=== PATIENT | female | born 1940 | race Caucasian/White ===

== ENCOUNTER 2017-03-25 13:56 | Emergency (ER) | payer OTHER ==
[2017-03-25 14:08] VITALS: TEMP 98
--- NOTE | 2017-03-25 14:25 | EDPHY ---
H & P Stated Complaint: tripped and fell on kitchen floor 3 wks ago - wants XR Time Seen by Provider: 03/25/17 14:07 HPI/ROS: CHIEF COMPLAINT: Right clavicle pain HISTORY OF PRESENT ILLNESS: The patient is a 76-year-old female who denies any significant medical history other than smoking. She fell in her kitchen 3 weeks ago and suffered a right clavicle fracture. She did not have it evaluated. She is also concerned that maybe she broke her ribs because she has pain with deep inspiration. She states that it is improving but is not yet resolved. She denies head neck or back injury . She has been ambulating without difficulty. REVIEW OF SYSTEMS: Constitutional: denies: chills, fever, recent illness, recent injury EENTM: denies: blurred vision, double vision, nose congestion Respiratory: See HPI Cardiac: denies: chest pain, irregular heart rate, lightheadedness, palpitations Gastrointestinal/Abdominal: denies: abdominal pain, diarrhea, nausea, vomiting, blood streaked stools Genitourinary: denies: dysuria, frequency, hematuria, pain Musculoskeletal: See HPI Skin: denies: lesions, rash, jaundice, bruising Neurological: denies: headache, numbness, paresthesia, tingling, dizziness, weakness Hematologic/Lymphatic: denies: blood clots, easy bleeding, easy bruising Immunologic/allergic: denies: HIV/AIDS, transplant EXAM: GENERAL: Well-appearing, well-nourished and in no acute distress. HEAD: Atraumatic, normocephalic. EYES: Pupils equal round and reactive to light, extraocular movements intact, sclera anicteric, conjunctiva are normal. ENT: TMs normal, nares patent, oropharynx clear without exudates. Moist mucous membranes. NECK: Normal range of motion, supple without lymphadenopathy or JVD. LUNGS: Breath sounds clear to auscultation bilaterally and equal. No wheezes rales or rhonchi. HEART: Regular rate and rhythm without murmurs, rubs or gallops. ABDOMEN: Soft, nontender, normoactive bowel sounds. No guarding, no rebound. No masses appreciated. BACK: No CVA tenderness, no spinal tenderness, step-offs or deformities EXTREMITIES: Step-off deformity right clavicle, old bruising visible through clavicular area and breast. Pain to right lateral ribs with deep inspiration. No tenderness or crepitus. Normal breath sounds. NEUROLOGICAL: Cranial nerves II through XII grossly intact. Normal speech, normal gait. 5/5 strength, normal movement in all extremities, normal sensation PSYCH: Normal mood, normal affect. SKIN: Warm, dry, normal turgor, no visible rashes or lesions. Source: Patient - Personal History Current Tetanus Diphtheria and Acellular Pertussis (TDAP): Unsure - Medical/Surgical History Hx Diabetes: No Hx Cardiac Disease: No Hx Renal Disease: No Hx Cirrhosis: No Hx Alcoholism: No Other PMH: Hyst - Family History Significant Family History: No pertinent family hx - Social History Smoking Status: Former smoker Alcohol Use: Sober Constitutional: Initial Vital Signs Temperature (C) 36.6 C 03/25/17 14:06 Heart Rate 101 H 03/25/17 14:06 Respiratory Rate 22 H 03/25/17 14:06 Blood Pressure 187/108 H 03/25/17 14:06 O2 Sat (%) 90 L 03/25/17 14:06 O2 Delivery Mode Room Air Allergies/Adverse Reactions: No Known Allergies Allergy (Unverified 03/25/17 14:05) Home Medications: Medication Instructions Recorded NK [No Known Home Meds] 03/25/17 Medical Decision Making - Diagnostics Imaging: Discussed imaging studies w/ typesetter apprentice Radiologist Procedures: Procedure: Splint placement. A sling was applied. After application of the splint I returned and re- examined the patient. The splint was adequately immobilizing the joint and distal to the splint the patient's circulation and sensation was intact. ED Course/Re-evaluation: 2:55 p.m. we discussed the x-ray results are reassuring. Will place the patient in a sling. I have consulted Orthopedics about the clavicle although it is already been 3 weeks. We discussed pain control as well. No sign of pneumothorax or pneumonia. Or pulmonary contusion. 3:05 p.m. I notified [facility] of the patient's injuries for follow-up. 3:06 p.m. I discussed the case with Tomas Matamoros who agrees with sling placement and follow up with Orthopedics for now. It will likely require surgical repair because there is a piece of bony between the two ends. Differential Diagnosis: Partial list of the Differential diagnosis considered include but were not limited to; rib fracture, clavicle fracture and although unlikely based on the history and physical exam, I also considered pneumonia, pneumothorax, contusion. I discussed these differential diagnoses and the plan with the patient as well as the usual and expected course. The patient understands that the diagnosis is provisional and that in medicine we are not always correct and that further workup is often warranted. Usual and customary warnings were given. All of the patient's questions were answered. The patient was instructed to return to the emergency department should the symptoms at all worsen or return, otherwise to followup with the physician as we discussed. - Data Points Medications Given: Discontinued Medications Hydrocodone Bitart/Acetaminophen ([place] 5/325mg Prepack#6) 1 btl TAKEHOME EDNOW ONE Stop: 03/25/17 15:21 Last Admin: 03/25/17 15:29 Dose: 1 btl Departure - Departure Disposition: Home, Routine, Self-Care Clinical Impression: Rib pain on right side Fracture, clavicle closed, shaft Qualifiers: Encounter type: initial encounter Fracture alignment: displaced Laterality: right Qualified Code(s): S42.021A - Displaced fracture of shaft of right clavicle, initial encounter for closed fracture Condition: Fair Instructions: Hydrocodone/Acetaminophen (By mouth), Clavicle Fracture (ED), Rib Contusion (ED) Additional Instructions: [facility] will call you tomorrow to arrange an appointment. If you do not hear from them tomorrow call [phone] Referrals: [facility],UNKNOWN [Other] - 2-3 days, call for appt.
[2017-03-25] MEDS ORDERED: HYDROCOD/APAP 5/325 PREPACK#6 BTL TAKEHOME ONE (15:20)
[2017-03-25 15:35] VITALS: BP 175/90; PULSE 85; RESP 18; O2SAT 96
== END 2017-03-25 15:30 | disposition home or self-care (01) ==
LOC: CED 13:56
DX: S42.021A Displaced fracture of shaft of right clavicle, initial encounter for closed fracture (principal); S29.9XXA Unspecified injury of thorax, initial encounter; Z87.891 Personal history of nicotine dependence; W18.39XA Other fall on same level, initial encounter; Y92.010 Kitchen of single-family (private) house as the place of occurrence of the external cause
CPT/HCPCS: 71101-PO; 73000-PO

== ENCOUNTER 2017-04-11 12:43 | Emergency (ER) | payer OTHER ==
[2017-04-11 13:10] VITALS: TEMP 98.1
--- NOTE | 2017-04-11 13:24 | CPEKG ---
Heart Rate: 82 RR Interval: 732 P-R Interval: 142 QRSD Interval: 84 QT Interval: 412 QTC Interval: 482 P Chandler: 0 QRS Chandler: 25 T Wave Chandler: 71 EKG Severity - BORDERLINE ECG - EKG Impression: WANDERING PACEMAKER EKG Impression: BORDERLINE T ABNORMALITIES, LATERAL LEADS Electronically Signed By: Delbert Duke 11-Apr-2017 14:55:41
--- NOTE | 2017-04-11 13:27 | EDPHY ---
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 She explains that when she sat back in the chair and start swing her legs up into the car she developed abrupt onset of sharp pain in her thoracic back and also in her chest. She describes the chest pain as feeling like it is bilateral rib pain. She states the rib pain is bilateral in the lower rib area. The incident started approximately an hour prior to arrival. She reports 6/10 pain in her chest and back. She reports worsening of the pain with movement. She reports moderate dyspnea associated with this. Patient is accompanied by a friend who drove her in by private vehicle for further evaluation. Her recent history is notable for a visit here on March 25 she was diagnosed with multiple right- sided rib fractures and right clavicle fracture from a fall in her home that occurred 3 weeks prior to that visit around the time of February 28 or so. ROS: No fevers or chills. HEENT: No complaints pulmonary: Dyspnea. No coughing. No hemoptysis. Cardiovascular: She describes the chest pain as feeling achy and sharp in nature similar to her rib injury pain. No heart palpitations or lightheadedness. No leg pain or swelling. GI: No abdominal pain. No vomiting. : No complaints new line integumentary: No complaints Endocrine: No complaints Psychiatric: No complaints neuro: No numbness tingling or focal weakness. No bowel or bladder incontinence. (Delbert Duke) - Physical Exam Exam: General Appearance: Alert, no distress. Eyes: Pupils equal and round no pallor or injection. ENT, Mouth: Mucous membranes moist. Respiratory: Rales at the left base. Otherwise clear to auscultation bilaterally. She has [id number]-yp-moderate left and right lower rib area. Back: She has thoracic midline tenderness in the region of T8-T10 or so that extends the right paraspinous muscular area. Cardiovascular: Regular rate and rhythm. No murmur gallop rub. No JVD. No peripheral edema or leg tenderness. Gastrointestinal: Abdomen is soft and nontender, no masses, bowel sounds normal. Neurological: GCS 15 with no focal deficits. Skin: Warm and dry, no rashes. Musculoskeletal: Neck is supple nontender. Extremities are symmetrical, full range of motion. She has a deformity to the right clavicle consistent with her recent clavicle fracture. Psychiatric: Mood and affect are normal DIFFERENTIAL DIAGNOSIS: After history and physical exam differential diagnosis was considered for pneumonia, pneumothorax, hemothorax, aortic dissection, myocardial ischemic disease, thoracic back strain, pathologic compression fracture (Delbert Duke) Constitutional: Initial Vital Signs Temperature (C) 36.7 C 04/11/17 13:04 Heart Rate 87 04/11/17 13:04 Respiratory Rate 18 04/11/17 13:04 Blood Pressure 168/119 H 04/11/17 13:04 O2 Sat (%) 92 04/11/17 13:04 O2 Delivery Mode Room Air O2 (L/minute) 2 Allergies/Adverse Reactions: No Known Allergies Allergy (Verified 04/11/17 13:03) Home Medications: Medication Instructions Recorded "Diabetes Medications" 04/11/17 traMADol [Ultram 50 mg (*)] 50 - 100 mg PO Q4 PRN #20 tab 04/11/17 Medical Decision Making - Diagnostics EKG Interpretation: 12 lead EKG performed at 1:23 p.m. Reveals wandering atrial pacemaker with a rate of 82 Intervals: Normal throughout [place]: P is 0, QRS of 25, T of 71 ST segments: Mild ST depression in V5 V6. Overall assessment wandering atrial pacemaker with borderline T-wave abnormalities laterally-cannot rule out ischemia. (Delbert Duke) Imaging Results: Imaging Impressions Chest X-Ray 04/11/17 13:03 Impression: 1. Subacute to old multiple right rib fractures. 2. No pneumothorax. 3. Several mild mid to lower thoracic compression fractures of indeterminate age. 4. Atherosclerotic tortuous aorta. 5. No definite pneumonia. Thoracic Spine X-Ray 04/11/17 14:40 Impression: Two moderate thoracic spine compression fractures, approximately T5 and T10, uncertain age. Ribs w/Chest X-Ray 04/11/17 15:19 Impression: 1. Multiple nondisplaced anterior right rib fractures as identified on prior chest x-ray. 2. Midshaft right clavicle fracture. Two view chest x-ray: Subacute right side rib fractures. Airway disease, COPD. Appreciate any focal infiltrates. She does have thoracic vertebral anterior wedging appears to be at T9 by my interpretation (Delbert Duke) ED Course/Re-evaluation: IV, monitor Tylenol and a tramadol for pain control of her thoracic back pain. Discussion: I think this patient suffered a pathologic thoracic compression fracture attributable to underlying osteoporosis when she shifted positions to get into her car today. No neuro deficits with this. No clinical evidence of acute WI. Palpation to the region the corresponds the radiographic finding reproduces her symptoms. Her other workup is benign. I spoke with MEHDI Angelo for neurosurgery on-call who recommends a [place]ora brace. I called [employer] splint supply at 2:45 a.m. And left a message requesting delivery of a [place] brace for this patient. Will plan to send her home on Tylenol and tramadol for pain control and follow up with Neurosurgery (Delbert Duke) Other Provider: Pt care turned over to me at shift change pending rib films , thoracic films and the [employer] to come with back splint. rib flims with multiple old fractures, thoracic with compression fractures, unkown age pt discharged home advised to follow up with pcp advised to go to [place] if pain worsening or unable to care for herself at home. Pt wants to try going home with pain medication. Given rx for Tramadol. Back splint applied. Pt feeling improved here. MG (Kavita Mccullough) - Data Points Laboratory Results: Laboratory Results 04/11/17 13:30 04/11/17 13:30 04/11/17 04/11/17 13:30 13:30 WBC 6.74 10^3/uL 10^3/uL (3.80-9.50) RBC 5.16 10^6/uL 10^6/uL (4.18-5.33) Hgb 15.3 g/dL g/dL (12.6-16.3) Hct 46.2 % % (38.0-47.0) MCV 89.5 fL fL (81.5-99.8) MCH 29.7 pg pg (27.9-34.1) MCHC 33.1 g/dL g/dL (32.4-36.7) RDW 14.7 % % (11.5-15.2) Plt Count 248 10^3/uL 10^3/uL (150-400) MPV 9.1 fL fL (8.7-11.7) Neut % (Auto) 65.6 % % (39.3-74.2) Lymph % (Auto) 24.2 % % (15.0-45.0) [place] % (Auto) 7.1 % % (4.5-13.0) Eos % (Auto) 1.5 % % (0.6-7.6) Baso % (Auto) 1.3 % % (0.3-1.7) Nucleat RBC Rel Count 0.0 % % (0.0-0.2) Absolute Neuts (auto) 4.42 10^3/uL 10^3/uL (1.70-6.50) Absolute Lymphs (auto) 1.63 10^3/uL 10^3/uL (1.00-3.00) Absolute Monos (auto) 0.48 10^3/uL 10^3/uL (0.30-0.80) Absolute Eos (auto) 0.10 10^3/uL 10^3/uL (0.03-0.40) Absolute Basos (auto) 0.09 10^3/uL 10^3/uL (0.02-0.10) Absolute Nucleated RBC 0.00 10^3/uL 10^3/uL (0-0.01) Immature Gran % 0.3 % % (0.0-1.1) Immature Gran # 0.02 10^3/uL 10^3/uL (0.00-0.10) Sodium 139 mEq/L mEq/L (135-145) Potassium 4.4 mEq/L mEq/L (3.5-5.2) Chloride 101 mEq/L mEq/L (97-110) Carbon Dioxide 23 mEq/l mEq/l (22-31) Anion Gap 15 mEq/L mEq/L (8-16) BUN 10 mg/dL mg/dL (7-23) Creatinine 0.7 mg/dL mg/dL (0.6-1.0) Estimated GFR > 60 Glucose 107 mg/dL H mg/dL (70-100) Calcium 9.5 mg/dL mg/dL (8.5-10.4) Troponin I < 0.012 ng/mL ng/mL (0.000-0.034) Medications Given: Discontinued Medications Acetaminophen (Tylenol) 1,000 mg PO EDNOW ONE Stop: 04/11/17 13:52 Last Admin: 04/11/17 14:03 Dose: 1,000 mg Fentanyl (Sublimaze) 25 mcg IVP EDNOW ONE Stop: 04/11/17 15:27 Last Admin: 04/11/17 15:32 Dose: 25 mcg Tramadol HCl (Ultram) 50 mg PO EDNOW ONE Stop: 04/11/17 13:52 Last Admin: 04/11/17 14:00 Dose: 50 mg Tramadol HCl (Ultram) 100 mg PO EDNOW ONE Stop: 04/11/17 17:20 Last Admin: 04/11/17 17:58 Dose: 100 mg Departure - Departure Disposition: Home, Routine, Self-Care Clinical Impression: Thoracic compression fracture Qualifiers: Encounter type: initial encounter Fracture type: closed Qualified Code(s): S22.000A - Wedge compression fracture of unspecified thoracic vertebra, initial encounter for closed fracture Condition: Good Instructions: Tramadol (By mouth), How to Use an Incentive Spirometer (ED), Vertebral Compression Fracture (ED) Additional Instructions: Diagnosis: Thoracic compression fracture Plan: Tylenol and tramadol for pain control as needed. No driving on tramadol. Call Dr. Rodriguez-neurosurgeon to arrange follow-up appointment for recheck under back Wear your [place] brace when your up and about to help support your back Return if you developed significant increase in symptoms despite the treatment plan, onset of numbness or tingling, or developed onset of fevers, worsening shortness of breath or other concerns. Referrals: Scott Rodriguez MD [Medical Doctor] - As per Instructions Prescriptions: traMADol [Ultram 50 mg (*)] 50 - 100 mg PO Q4 PRN #20 tab PRN Reason: breakthrough pain
[2017-04-11 13:41] LABS: PLATELET COUNT 248 10^3/uL (150-400)
[2017-04-11] MEDS ORDERED: traMADol 50 MG TAB PO ONE ×2 (13:51→17:19)
[2017-04-11] MEDS ORDERED: ACETAMINOPHEN 500 MG TAB PO ONE (13:51)
[2017-04-11] MEDS ORDERED: fentaNYL 100 MCG/2 ML INJ IVP ONE (15:26)
[2017-04-11 16:47] VITALS: BP 168/90; PULSE 79; RESP 18; O2SAT 93
== END 2017-04-11 18:05 | disposition home or self-care (01) ==
LOC: CED 12:43
DX: S22.050A Wedge compression fracture of T5-T6 vertebra, initial encounter for closed fracture (principal); F17.200 Nicotine dependence, unspecified, uncomplicated; E11.9 Type 2 diabetes mellitus without complications; S22.070A Wedge compression fracture of T9-T10 vertebra, initial encounter for closed fracture; X58.XXXA Exposure to other specified factors, initial encounter
CPT/HCPCS: 71046; 71111; 72070; 93005; 96374; 99285; J3010; 80048-PO; 84484-PO; 85025-PO